=== PATIENT | male | born 1970 | race Caucasian/White ===

== ENCOUNTER 2021-08-04 12:41 | Emergency (ER) | payer OTHER ==
[~2021-08-04] VITALS: Ht 182.9 cm; Wt 181.8 kg
[2021-08-04 12:56] VITALS: BP 174/100
--- NOTE | 2021-08-04 13:07 | PHYS DOC ---
Adult General Chief Complaint Chief Complaint: FOOT INJURY PAIN [facility] HPI Patient is a 51-year-old male presenting for right foot pain. Reports injury onset was yesterday evening, he attempted standing from a seated position and suffered an inversion type ankle injury to his right foot. Reported focal pain to base of fifth metatarsal that exacerbates with weightbearing. Reports pain is well controlled with thrc-and-mmucjqm agent such as Tylenol and ibuprofen but ongoing pain with ambulation prompted him to come in for evaluation today Review of Systems Review of Systems Fourteen body systems of review of systems have been reviewed. See HPI for per tinent positives and negative responses, other donohue all other systems are negative, non-pertinent or non-contributory Physical Exam Physical Exam Constitutional: Well developed, well nourished, no acute distress, non-toxic appearance. HENT: Normocephalic, atraumatic, bilateral external ears normal, oropharynx moist, no oral exudates, nose normal. Eyes: PERRLA, EOMI, conjunctiva normal, no discharge. Neck: Normal range of motion, no tenderness, supple, no stridor. Cardiovascular: Heart rate regular per monitor Lungs & Thorax: No respiratory distress or accessory muscle use, bilateral chest rise Abdomen: Abdomen soft, non-tender, bowel sounds present in all quadrants, no guarding or rebound, nonacute abdomen. Skin: Warm, dry, no erythema, no rash. Back: No tenderness, no CVA tenderness. Extremities: Tenderness present to base of right fifth metatarsal of right foot otherwise unremarkable formal examinations of right hip, right knee with no posterior fibular head pain, soft tissue compartments of right lower extremity and right ankle. No cyanosis, no clubbing, ROM intact, no edema. Neurologic: Alert and oriented X 3, normal motor & sensory function, no focal deficits noted. Psychologic: Affect normal, judgement normal, mood normal. Current Patient Data Vital Signs Vital Signs Date Time Temp Pulse Resp B/P (MAP) Pulse Ox O2 Delivery O2 Flow Rate FiO2 08/04/21 12:56 97.4 84 20 174/100 (124) 96 Room Air Vital Signs Date Time Temp Pulse Resp B/P (MAP) Pulse Ox O2 Delivery O2 Flow Rate FiO2 08/04/21 12:56 97.4 84 20 174/100 (124) 96 Room Air EKG EKG [] Radiology/Procedures Radiology/Procedures Three-view right foot HISTORY: Pain AP lateral oblique views There is a nondisplaced spiral fracture of the distal third of the fifth metatarsal. The remaining visualized osseous structures appear normal. IMPRESSION: Acute traumatic fracture of the fifth metatarsal. Electronically signed by: Gustabo Harrell III, MD (08/04/2021 1:18 PM) [facility] Heart Score C/O Chest Pain: No Risk Factors: Risk Factors: DM, Current or recent (<one month) smoker, HTN, HLP, family history of CAD, obesity. Risk Scores: Risk Factors: DM, Current or recent (<one month) smoker, HTN, HLP, family history of CAD, obesity. Course & Med Decision Making Course & Med Decision Making ABCs unremarkable HPI physical exam and radiographs of right foot concerning for closed right fifth metatarsal fracture Findings discussed with on-call foot physician, recommendations for posterior splint, nonweightbearing and close outpatient follow-up advised Patient updated on plan of care and was amenable. Splint applied and rechecked by myself, motor or sensory neuro function fully intact. Reports pain is well controlled with Tylenol and ibuprofen, deferred opiate pain management Crutches, strict return precautions and continued supportive care practices advised with resources given on who to follow-up with in outpatient setting regarding his traumatic foot fracture. All questions and concerns addressed prior to departure Victorino Disclaimer Kaeon Disclaimer This electronic medical record was generated, in whole or in part, using a voice recognition dictation system. Departure Departure: Impression: Primary Impression: Closed nondisplaced fracture of fifth right metatarsal bone Disposition: 01 HOME / SELF CARE / HOMELESS Condition: STABLE Referrals: ARACELI TRIMBLE DO (PCP) MOY WOO DPJose Alberto Patient Instructions: Metatarsal Fracture with [facility] Additional Instructions: You were seen for a fracture or broken bone. We spoke with the foot doctor (Dr. Woo) who needs to see you in clinic. Their information is attached to your discharge packet. Please contact his office first thing tomorrow to review ER visit today and need for close outpatient follow-up. If you were provided a splint use this as directed. You should not use the affected body part until you follow up with orthopedics. Keep the area clean, dry, and avoid getting it wet. You should use ice, NSAIDs and/or tylenol for pain, and elevation to help with swelling and pain. Return to the ED if you develop worsening pain, numbness, tingling, weakness, fever, redness, or any other new or concerning symptoms. GOOD TRAN DO Aug 04, 2021 13:07
--- NOTE | 2021-08-04 13:20 | RAD ---
Three-view right foot HISTORY: Pain AP lateral oblique views There is a nondisplaced spiral fracture of the distal third of the fifth metatarsal. The remaining vi sualized osseous structures appear normal. IMPRESSION: Acute traumatic fracture of the fifth metatarsal. Electronically signed by: Gustabo Harrell III, MD (08/04/2021 1:18 PM) [facility]
== END 2021-08-04 14:44 | disposition home or self-care (01) ==
LOC: ER 12:41
DX: S92.354A Nondisplaced fracture of fifth metatarsal bone, right foot, initial encounter for closed fracture (principal); X50.9XXA Other and unspecified overexertion or strenuous movements or postures, initial encounter; Y93.89 Activity, other specified; Y92.89 Other specified places as the place of occurrence of the external cause; Y99.8 Other external cause status
CPT/HCPCS: 29515; 73630; 99283